=== PATIENT | female | born 1975 | race Two or more races ===

== ENCOUNTER 2017-01-16 09:09 | Emergency (ER) | payer SELFPAY ==
[2017-01-16 09:24] VITALS: BP 147/92; PULSE 85; RESP 18; TEMP 98; O2SAT 97
--- NOTE | 2017-01-16 09:30 | EDPHY ---
H & P Time Seen by Provider: 01/16/17 09:20 HPI/ROS: CHIEF COMPLAINT: Right shoulder pain History by patient HISTORY OF PRESENT ILLNESS: 39-year-old otherwise healthy woman presents complaining of right shoulder pain which she describes as anterior and deep and worse when she turns her steering wheel or moves her arm back to shoot a pool cue. Symptoms have been going on for about 2 months. There is no history of preceding trauma. She has a history of arthritis in her foot for which he takes Naprosyn and she is unsure whether this improves the pain in her shoulder. She says she decided to come seek medical attention today because she has not been able to sleep recently because of it. She denies any fever or weight loss. She denies any numbness or tingling. REVIEW OF SYSTEMS: As in HPI, and all other systems reviewed and are negative Smoking Status: Never smoked Physical Exam: General Appearance: Alert and no distress. Eyes: Pupils equal and round no injection. Musculoskeletal: Neck is supple and nontender. Extremities: Right shoulder with full range of motion without pain, negative bony tenderness, negative AC joint tenderness, mild pain with external rotation and extension, full AB duction against resistance with without pain and with slight pain with internal rotation and AB duction against resistance, radial pulse 2 +equal to the left, Radian, median, ulnar nerve intact sensory and motor , axillary nerve sensation intact. Skin: No rashes or lesions except as described above. Constitutional: Initial Vital Signs Temperature (C) 36.6 C 01/16/17 09:22 Heart Rate 85 01/16/17 09:22 Respiratory Rate 18 01/16/17 09:22 Blood Pressure 147/92 H 01/16/17 09:22 O2 Sat (%) 97 01/16/17 09:22 O2 Delivery Mode Room Air Allergies/Adverse Reactions: morphine Allergy (Verified 01/16/17 09:21) Home Medications: Medication Instructions Recorded Lidocaine 5% [Lidoderm 5% Patch 1 ea TD DAILY #30 patch 01/16/17 (*)] MDM/Departure - MDM Imaging: I viewed and interpreted images myself ED Course/Re-evaluation: 41-year-old woman presents with right anterior shoulder pain with some suggestion of rotator cuff tendinitis on exam. X-ray shows no evidence fracture , dislocation. Patient was given reassurance. I am recommending lidocaine patches for symptomatic treatment, to establish primary care and consider physical therapy. Patient understands and is agreeable to this plan. - Depart Disposition: Home, Routine, Self-Care Clinical Impression: Right anterior shoulder pain Condition: Good Instructions: Shoulder Pain (ED) Additional Instructions: You were seen by Dr. Chrissy Escobar today. Continue to take Naprosyn twice a day for your shoulder. Try lidocaine patches for pain, particularly at night. Please establish primary care. Consider physical therapy. Return for any worsening or new concerns. Prescriptions: Lidocaine 5% [Lidoderm 5% Patch (*)] 1 ea TD DAILY #30 patch Referrals: NONE *PRIMARY CARE P,. [Primary Care Provider] - As per Instructions
== END 2017-01-16 10:01 | disposition home or self-care (01) ==
LOC: CED 09:09
DX: M25.511 Pain in right shoulder (principal)
CPT/HCPCS: 73030-PO